=== PATIENT | female | born 1970 | race Caucasian/White ===

== ENCOUNTER 2018-03-14 14:20 | Emergency (ER) | payer OTHER ==
[2018-03-14 14:43] VITALS: BP 134/87; PULSE 126; TEMP 98.5; BMI 26.0
--- NOTE | 2018-03-14 15:14 | PDOC ---
History of Present Illness - General History Source: Patient Exam Limitations: No Limitations - History of Present Illness Initial Comments: 03/14/18 15:25 The patient is a 47 year old female with past medical history of breast cancer ( s/p mastectomy 2004, residual chronic lymphedema) and goiter who presents to the ED s/p injury to her right index finger after closing it in the bathroom door. The patient reports pain to the area, but denies any loss of sensation or tingling. She denies any nausea or vomiting. Denies any recent illness or fevers. She reports being right hand dominant. She states her last tetanus vaccine was "a very long time ago". <Tierra Horner - Last Filed: 03/14/18 15:25> <Juan Pablo Medellin - Last Filed: 03/14/18 17:03> - General Chief Complaint: Laceration Stated Complaint: FINGER LACERATION Time Seen by Provider: 03/14/18 15:14 Past History <Tierra Horner - Last Filed: 03/14/18 15:25> - Past Medical History Cancer: Yes (breast) COPD: No - Suicide/Smoking/Psychosocial Hx Smoking Status: No Smoking History: Never smoked Number of Cigarettes Smoked Daily: 0 Hx Alcohol Use: No Drug/Substance Use Hx: No Substance Use Type: None <Juan Pablo Medellin - Last Filed: 03/14/18 17:03> - Past Medical History Allergies/Adverse Reactions: Allergies Allergy/AdvReac Type Severity Reaction Status Date / Time No Known Allergies Allergy Verified 03/14/18 14:37 Home Medications: Ambulatory Orders Acetaminophen W/ Codeine #3 [Tylenol # 3 -] 1 - 2 tab PO Q4H PRN #20 tablet MDD 8 03/14/18 Anastrozole [Arimidex -] 1 mg PO DAILY 03/14/18 Calcium Carbonate/Vitamin D3 [Calcium 600 + Vit D 400 Softgl] 1 each PO DAILY Cephalexin Monohydrate [Keflex] 250 mg PO Q6H #30 capsule 03/14/18 Review of Systems - Review of Systems Able to Perform ROS?: Yes Comments:: 03/14/18 15:25 CONSTITUTIONAL: Absent: fever, no chills, no fatigue EYES: Absent: visual changes ENT: Absent: ear pain, no sore throat CARDIOVASCULAR: Absent: chest pain, no palpitations RESPIRATORY: Absent: cough, no SOB GI: Absent: abdominal pain, no nausea, no vomiting, no constipation, no diarrhea GENITOURINARY: Absent: dysuria, no frequency, no hematuria MUSKULOSKELETAL: Present: pain to right index finger Absent: back pain SKIN: Absent: rash NEURO: Absent: headache All Other Systems: Reviewed and Negative <EvensTierra - Last Filed: 03/14/18 15:25> *Physical Exam - Vital Signs Last Vital Signs Temp Pulse Resp BP Pulse Ox 98.5 F 126 H 18 134/87 99 03/14/18 14:36 03/14/18 14:36 03/14/18 14:36 03/14/18 14:36 03/14/18 14:36 - Physical Exam Comments: 03/14/18 15:27 GENERAL: Well-appearing, well-nourished. No apparent distress. HEENT: Normocephalic, atraumatic. PERRL, EOM intact. CARDIOVASCULAR: Normal S1, S2. Regular rate and rhythm. PULMONARY: Clear to auscultation bilaterally. ABDOMEN: Soft, non-distended, non-tender. EXTREMITIES: Chronic lymphedema of right arm without erythema or warmth suggestive of infection or inflammation. The right index finger has a 1 cm transverse laceration on volar aspect of distal pulp, not involving nail or nail bed. No involvement of joint. Full flexion or extension of the DIP joint against resistance. No significant sensory defect. Normal ROM in all four extremities. No gross deformities. SKIN: Warm, dry. No rash NEUROLOGICAL: No focal neurological deficits. <[facility] - Last Filed: 03/14/18 15:25> - Vital Signs Last Vital Signs Temp Pulse Resp BP Pulse Ox 98.5 F 126 H 18 134/87 99 03/14/18 14:36 03/14/18 14:36 03/14/18 14:36 03/14/18 14:36 03/14/18 14:36 <Juan Pablo Medellin - Last Filed: 03/14/18 17:03> Medical Decision Making - Medical Decision Making 03/14/18 17:02 Procedure note: Repair of laceration The fingertip was prepped with Betadine and the laceration was thoroughly irrigated with normal saline. Hemostasis with pressure. Tissues of the fingertip were well approximated with Steri-Strips. Bleeding controlled. Tube gauze applied and a sling for elevation. Return for wound check and dressing change as directed. Antibiotics prescribed due to chronic lymphedema from breast surgery. Patient fully ambulatory and in no pain or other distress upon discharge to follow-up as directed <Juan Pablo Medellin - Last Filed: 03/14/18 17:03> *DC/Admit/Observation/Transfer - Attestations Scribe Attestion: 03/14/18 15:30 Documentation prepared by Tierra Horner, acting as medical claims assistant for Juan Pablo Munson MD. <Tierra Horner - Last Filed: 03/14/18 15:25> - Discharge Dispostion Decision to Admit order: No <Juan Pablo Medellin - Last Filed: 03/14/18 17:03> Diagnosis at time of Disposition: Laceration of finger Qualifiers: Encounter type: initial encounter Finger: index finger Damage to nail status: without damage Foreign body presence: without foreign body Laterality: right Qualified Code(s): S61.210A - Laceration without foreign body of right index finger without damage to nail, initial encounter - Discharge Dispostion Disposition: HOME Condition at time of disposition: Improved - Prescriptions Prescriptions: Acetaminophen W/ Codeine #3 [Tylenol # 3 -] 1 - 2 tab PO Q4H PRN #20 tablet MDD 8 PRN Reason: Pain Cephalexin Monohydrate [Keflex] 250 mg PO Q6H #30 capsule - Patient Instructions Printed Discharge Instructions: How to Use a Sling, DI for Laceration Repair Steri-Strips Additional Instructions: Keep the finger clean and absolutely dry. Completely avoid exposure to water. Antibiotics as directed. Pain killers as needed. Keep the forearm and hand elevated at all times Return for dressing change and wound check in 3-4 days.
[2018-03-14] MEDS ORDERED: IBUPROFEN 600 MG TABLET (FP) PO ONE ×2 (15:20→15:24)
[2018-03-14] MEDS ORDERED: BENZOIN/ALOE VERA/STORAX/TOLU 58 ML BOTTLE ONE (15:34)
[2018-03-14] MEDS ORDERED: CEPHALEXIN MONOHYDRATE 500 MG CAPSULE (UD) PO ONE (15:56)
[2018-03-14] MEDS ORDERED: DIPHTH,PERTUSS(ACELL),TET 0.5 ML DISP.SYRIN IM ONE ×2 (16:05→16:06)
[2018-03-14] MEDS ORDERED: CEPHALEXIN MONOHYDRATE 500 MG CAPSULE (UD) ONE (16:07)
== END 2018-03-14 16:13 | disposition home or self-care (01) ==
LOC: FER 14:20
PROC: 3E0234Z Introduction of Serum, Toxoid and Vaccine into Muscle, Percutaneous Approach (ICD-10-PCS; principal; 2018-03-14)
DX: S61.210A Laceration without foreign body of right index finger without damage to nail, initial encounter (principal); W20.8XXA Other cause of strike by thrown, projected or falling object, initial encounter; Y93.89 Activity, other specified; Y92.410 Unspecified street and highway as the place of occurrence of the external cause; Z85.3 Personal history of malignant neoplasm of breast
CPT/HCPCS: 73140-TC-RT-FY; 90715; 99282-25

== ENCOUNTER 2018-03-18 16:11 | Emergency (ER) | payer OTHER ==
[2018-03-18 16:14] VITALS: BP 126/81; PULSE 91; TEMP 99.5; BMI 25.9
--- NOTE | 2018-03-18 17:11 | PDOC ---
History of Present Illness - History of Present Illness Initial Comments: 03/18/18 17:20 47 yo F with h/o breast cancer (s/p mastectomy 2004, residual chronic lymphedema ), day 4 s/p injury/laceration to R index finger after closing it in the bathroom door. Patient pain improved, and continues to deny loss of sensation, numbness, tingling, or weakness. Denies draining, discharge, bleeding. No nailbed involvement, foreign body, or debris. Has been able to keep wound closed with steri strips in place and dry. Patient R hand dominant and tetanus up to date. Denies F/C, N/V, CP, SOB, abdominal pain, diarrhea, constipation, urinary complaints, weakness, lightheadedness, sensory changes. PMHx: as noted above ROS: as noted above <Sean Kearns - Last Filed: 03/18/18 17:20> <Ankit Monte - Last Filed: 03/18/18 18:29> <Devonte Wilkins - Last Filed: 03/18/18 18:32> - General Chief Complaint: Wound Stated Complaint: WOUND CHECK Time Seen by Provider: 03/18/18 16:18 Past History - Past Medical History Cancer: Yes (breast) COPD: No - Suicide/Smoking/Psychosocial Hx Smoking Status: No Smoking History: Never smoked Number of Cigarettes Smoked Daily: 0 Hx Alcohol Use: No Drug/Substance Use Hx: No Substance Use Type: None <Sean Kearns - Last Filed: 03/18/18 17:20> <Ankit Monte - Last Filed: 03/18/18 18:29> <Devonte Wilkins - Last Filed: 03/18/18 18:32> - Past Medical History Allergies/Adverse Reactions: Allergies Allergy/AdvReac Type Severity Reaction Status Date / Time No Known Allergies Allergy Verified 03/18/18 16:12 Home Medications: Ambulatory Orders Acetaminophen W/ Codeine #3 [Tylenol # 3 -] 1 - 2 tab PO Q4H PRN #20 tablet MDD 8 03/14/18 Anastrozole [Arimidex -] 1 mg PO DAILY 03/14/18 Calcium Carbonate/Vitamin D3 [Calcium 600 + Vit D 400 Softgl] 1 each PO DAILY Cephalexin Monohydrate [Keflex] 250 mg PO Q6H #30 capsule 03/14/18 Review of Systems - Review of Systems Comments:: 03/18/18 17:22 GENERAL/CONSTITUTIONAL: No fever or chills. No weakness. HEAD, EYES, EARS, NOSE AND THROAT: No change in vision. No ear pain or discharge. No sore throat. CARDIOVASCULAR: No chest pain or shortness of breath RESPIRATORY: No cough, wheezing, or hemoptysis. GASTROINTESTINAL: No nausea, vomiting, diarrhea or constipation. GENITOURINARY: No dysuria, frequency, or change in urination. MUSCULOSKELETAL: R Index finger laceration. No joint or muscle swelling or pain. No neck or back pain. SKIN: No rash NEUROLOGIC: No headache, vertigo, loss of consciousness, or change in strength/ sensation. ENDOCRINE: No increased thirst. No abnormal weight change HEMATOLOGIC/LYMPHATIC: No anemia, easy bleeding, or history of blood clots. ALLERGIC/IMMUNOLOGIC: No hives or skin allergy. <Sean Kearns - Last Filed: 03/18/18 17:20> *Physical Exam - Vital Signs Last Vital Signs Temp Pulse Resp BP Pulse Ox 99.5 F 91 H 17 126/81 100 03/18/18 16:12 03/18/18 16:12 03/18/18 16:12 03/18/18 16:12 03/18/18 16:12 - Physical Exam Comments: 03/18/18 17:23 GENERAL: Awake, alert, and fully oriented, in no acute distress HEAD: No signs of trauma, normocephalic, atraumatic EYES: PERRLA, EOMI, sclera anicteric, conjunctiva clear ENT: Hearing grossly normal, nares patent, oropharynx clear without exudates. Moist mucosa NECK: Normal ROM, supple, no lymphadenopathy, JVD, or masses LUNGS: No distress, speaks full sentences, clear to auscultation bilaterally HEART: Regular rate and rhythm, normal S1 and S2, no murmurs, rubs or gallops, peripheral pulses normal and equal bilaterally. EXTREMITIES : Normal inspection, Normal range of motion, no edema. No clubbing or cyanosis. R HAND: R index finger with steri strips in place. Laceration 1 cm volar distal pulp with no nailbed involvement. C/D/I. Absent discharge, bleeding, drainage. Nml ROM. Intact Radial pulses BL and symmetric 2+. SKIN: Warm, Dry, normal turgor, no rashes or lesions noted <Sean Kearns - Last Filed: 03/18/18 17:20> - Vital Signs Last Vital Signs Temp Pulse Resp BP Pulse Ox 99.5 F 91 H 17 126/81 100 03/18/18 16:12 03/18/18 16:12 03/18/18 16:12 03/18/18 16:12 03/18/18 16:12 <Ankit Monte S - Last Filed: 03/18/18 18:29> - Vital Signs Last Vital Signs Temp Pulse Resp BP Pulse Ox 99.5 F 91 H 17 126/81 100 03/18/18 16:12 03/18/18 16:12 03/18/18 16:12 03/18/18 16:12 03/18/18 16:12 <Devonte Wilkins - Last Filed: 03/18/18 18:32> Medical Decision Making - Medical Decision Making 03/18/18 17:25 47 yo F with h/o breast cancer (s/p mastectomy 2004, residual chronic lymphedema ), day 4 s/p injury/laceration to R index finger after closing it in the bathroom door, who presents for wound check. VSS, AF, A&OX3. Distal R index finger 1 cm pulp laceration is well perfused, C/D/I, steri strips in place, and neruovasculalry intact. Patient on antibiotic d/t chronic R arm lymphedema. ED Course: Tube gauze placed over steri strips on R index finger. Pt. advised to [facility] ED in 4-5 days for strip removal/wound check. Pt. stable for d/c with return precautions. <Sean Kearns - Last Filed: 03/18/18 17:20> *DC/Admit/Observation/Transfer - Discharge Dispostion Decision to Admit order: No - Attestations Physician Attestion: 03/18/18 17:10 I attest to the information provided in this note. <Sean Kearns - Last Filed: 03/18/18 17:20> <Ankit Monte S - Last Filed: 03/18/18 18:29> - Attestations Scribe Attestion: Documentation prepared by Devonte Wilkins, acting as lpn medical assistant for Ankit Monte MD. <Devonte Wilkins - Last Filed: 03/18/18 18:32> Diagnosis at time of Disposition: Wound check, abscess Laceration of finger Qualifiers: Encounter type: subsequent encounter Finger: index finger Damage to nail status : without damage Foreign body presence: without foreign body Laterality: right Qualified Code(s): S61.210D - Laceration without foreign body of right index finger without damage to nail, subsequent encounter - Discharge Dispostion Disposition: HOME Condition at time of disposition: Stable - Patient Instructions Printed Discharge Instructions: DI for Wound Dehiscence, How to Change a Wet-to -dry Wound Dressing Additional Instructions: Please return to the emergency department with any new or worsening symptoms or concerns. Please follow up in emergency department in 5 days for strip removal. - Post Discharge Activity Forms/Work/School Notes: Back to Work Attending Attestation - ED Attending Attestation I have performed the following: I have examined & evaluated the patient, The case was reviewed & discussed with the resident, I agree w/resident's findings & plan, Exceptions are as noted <Ankit Monte - Last Filed: 03/18/18 18:29> - Resident Resident Name: Sean Kearns - ED Attending Attestation I have performed the following: I have examined & evaluated the patient, The case was reviewed & discussed with the resident, I agree w/resident's findings & plan, Exceptions are as noted - HPI HPI: 03/18/18 18:32 The patient is 47 year old female with a significant past medical history of goiter, breast cancer (mastectomy 2003), and residual chronic lymphedema who presents to the emergency department for evaluation of wound that was treated on Wednesday 03/14. The patient reports visiting the emergency department today to have her recent right index finger wound evaluated. She reports right index finger pain still exists. The patient denies fever, chills, nausea, vomiting, diarrhea, and constipation. - Physicial Exam PE: GENERAL: Well developed, well nourished. Awake and alert. No acute distress. HEENT: Normocephalic, atraumatic. PERRLA, EOMI. No conjunctival pallor. Sclera are non- icteric. Moist mucous membranes. Oropharynx is clear. NECK: Supple. Full ROM. No JVD. Carotid pulses 2+ and symmetric, without bruits. No thyromegaly. No lymphadenopathy. CARDIOVASCULAR: Regular rate and rhythm. No murmurs, rubs, or gallops. Distal pulses are 2+ and symmetric. PULMONARY: No evidence of respiratory distress. Lungs clear to auscultation bilaterally. No wheezing, rales or rhonchi. ABDOMINAL: Soft. Non-tender. Non-distended. No rebound or guarding. No organomegaly. Normoactive bowel sounds. MUSCULOSKELETAL Normal range of motion at all joints. No bony deformities or tenderness. No CVA tenderness. EXTREMITIES: (+)Incomplete healing of distal tip laceration of second digit of right hand. No cyanosis. No clubbing. No edema. No calf tenderness. SKIN: Warm and dry. Normal capillary refill. No rashes. No jaundice. NEUROLOGICAL: Alert, awake, appropriate. Cranial nerves 2-12 intact. No deficits to light touch and temperature in face, upper extremities and lower extremities. No motor deficits in the in face, upper extremities and lower extremities. Normoreflexic in the upper and lower extremities. Normal speech. Toes are down- going bilaterally. PSYCHIATRIC: Cooperative. Good eye contact. Appropriate mood and affect. - Medical Decision Making Strongly encouraged her to keep wound clean and dry. Continue antibiotics and return to ED for follow up evaluation. <Devonte Wilkins - Last Filed: 03/18/18 18:32>
== END 2018-03-18 17:20 | disposition home or self-care (01) ==
LOC: FER 16:11
DX: Z48.01 Encounter for change or removal of surgical wound dressing (principal)
CPT/HCPCS: 99281-25

== ENCOUNTER → 2018-03-22 | Emergency (ER) | payer OTHER ==
[~2018-03-22] MED LIST: VANCOMYCIN 1 GRAM (PRE-DOCKED) 1,000 MG/250 ML BAG IVPB ONE; VANCOMYCIN 1,000 MG VIAL (RESTRICTED TO ID ONLY) ONE
--- NOTE | 2018-03-22 20:14 | PDOC ---
Suture Removal/Wound Check HPI - History of Present Illness History Source: Yes: Patient Exam Limitations: Yes: No Limitations - Onset of Previous Treatment Comment:: 03/22/18 20:27 The patient is a 47 year old female, with a significant past medical history of breast cancer (s/p mastectomy 2003, residual chronic lymphedema), who presents to the emergency department, s/p laceration for a wound check of the right distal phalanx. The patient reports slamming her finger in a door and was treated. She reports coming in 2 days ago for a wound check and told to come back today for further evaluation. She denies any loss of sensation to the finger. She denies recent fevers, chills , headache or dizziness. She denies recent nausea, vomit, diarrhea or constipation. She denies recent dysuria, frequency, urgency or hematuria. She denies recent chest pain or shortness of breath. PAST MEDICAL HISTORY: breast cancer (s/p mastectomy 2003, residual chronic lymphedema) PAST SURGICAL HISTORY: no significant history FAMILY HISTORY: no pertinent history SOCIAL HISTORY: Pt lives with family and is employed. MEDICATIONS: reviewed ALLERGIES: As per nursing notes General: No fevers or chills, no weakness, no weight loss HEENT: No change in vision. No sore throat,. No ear pain CardioVascular: No chest pain or shortness of breath Respiratory:No cough, or wheezing. Gastrointestinal: no nausea, vomiting, diarrhea or constipation, No rectal bleeding Genitourinary: No dysuria, hematuria, or frequency Musculoskeletal: No joint or muscle pain or swelling Neurologic: No headache, vertigo, dizziness or loss of consciousness Psychiatric: nor depression Skin: No rashes or easy bruising Endocrine: no increased thirst or abnormal weight change Allergic: no skin or latex allergy All other systems reviewed and normal GENERAL: The patient is awake, alert, and fully oriented, in no acute distress. HEAD: Normal with no signs of trauma. EYES: Pupils equal, round and reactive to light, extraocular movements intact, sclera anicteric, conjunctiva clear. +EXTREMITIES: Dehiscence of the wound margin with purulent discharge of the distal phalanx of the right index finger with moderate erythema and tenderness. No tenderness to palpation of the extensor and flexor sheath. Normal range of motion, no edema. NEUROLOGICAL: Normal speech, normal gait. PSYCH: Normal mood, normal affect. SKIN: Warm, Dry, normal turgor, no rashes or lesions noted. <Los Shankar - Last Filed: 03/22/18 21:18> - History of Present Illness History Source: Yes: Patient Exam Limitations: Yes: No Limitations - Previous ED Treatment Type of procedure performed on last visit: Yes: Other (wound check) - Onset of Previous Treatment Comment:: A portion of this note was documented by scribe services under my direction. I have reviewed the details of the note, within reason, and agree with the documentation. The case summary and management plan written by me. Assessment and plan: This is a 47-year-old female who comes in for a wound check. Patient was here on the of this month for the initial injury which was a partial amputation of the tip of the distal phalanx of her right index finger. An x-ray was done at the time of the initial injury that shows a questionable very small chip fracture of the tip versus calcification in the area. The finger was not initially sutured in said it was Steri-Stripped and an occlusive tegaderm type dressing was applied. Patient was told to return in 4 days for a wound check. Patient was also started on Keflex for 7 days which she completed as prescribed Patient did return in 4 days for a wound check. And patient was told to return again in another 4 days for another wound check. When patient returned today I removed the occlusive dressing and the Steri-Strips came off with it. There was purulent discharge from the wound margins with total wound dehiscence. There was erythema and swelling of the finger secondary to infection. Discussed with Dr. Dominguez who was covering the hand service. He recommended patient be transferred to the [facility] as this is a complicated infected wound of her finger that most likely will require debridement and OR management. [facility] was called and Dr. Overton accepted patient for transfer to his service patient will go to the emergency department at the [facility] <Pratima Martínez I - Last Filed: 03/23/18 19:53> - History of Present Illness Chief Complaint: Revisit,Wound Recheck Stated Complaint: WOUND CHECK Time Seen by Provider: 03/22/18 20:14 Past History <Los Shankar - Last Filed: 03/22/18 21:18> - Past Medical History Cancer: Yes (breast) COPD: No - Suicide/Smoking/Psychosocial Hx Smoking Status: No Smoking History: Never smoked Number of Cigarettes Smoked Daily: 0 Hx Alcohol Use: No Drug/Substance Use Hx: No Substance Use Type: None <Pratima Martínez I - Last Filed: 03/23/18 19:53> - Past Medical History Allergies/Adverse Reactions: Allergies Allergy/AdvReac Type Severity Reaction Status Date / Time No Known Allergies Allergy Verified 03/18/18 16:12 Home Medications: Ambulatory Orders Anastrozole [Arimidex -] 1 mg PO DAILY 03/14/18 *Physical Exam - Vital Signs Last Vital Signs Temp Pulse Resp BP Pulse Ox 98.9 F 92 H 16 120/74 100 03/22/18 20:16 03/22/18 20:16 03/22/18 20:16 03/22/18 20:16 03/22/18 20:16 <Los Shankar - Last Filed: 03/22/18 21:18> *DC/Admit/Observation/Transfer - Attestations Scribe Attestion: 03/22/18 20:27 Documentation prepared by Los Shankar, acting as medical practitioners for Pratima Martínez MD. <Los Shankar - Last Filed: 03/22/18 21:18> <Pratima Martínez I - Last Filed: 03/23/18 19:53> Diagnosis at time of Disposition: Infection of index finger, Wound dehiscence - Discharge Dispostion Disposition: TRANSFER ACUTE CARE/OTHER HOSP Condition at time of disposition: Stable
[2018-03-22 20:20] VITALS: TEMP 98.9; BMI 25.9
[2018-03-22 21:57] LABS: HEMATOCRIT 39.4 % (32.4-45.2); HEMOGLOBIN 13.7 GM/dl (10.7-15.3); MCH 29.1 pg (25.7-33.7); MCHC 34.8 g/dl (32.0-36.0); MEAN CELL VOLUME 83.7 fl (80-96); MEAN PLT VOLUME 7.3 fl (7.5-11.1); PLATELET COUNT 344 K/MM3 (134-434); RBC 4.71 M/mm3 (3.60-5.2); RDW 12.4 % (11.6-15.6); WHITE BLOOD COUNT 7.5 K/mm3 (4.0-10.8)
[2018-03-22 21:58] LABS: BASO % 0.8 % (0-2.0); EOS % 3.3 % (0-4.5); LYMPH % 31.1 % (8-40); MONO % 5.4 % (3.8-10.2); NEUT % 59.4 % (42.8-82.8)
[2018-03-22 22:08] LABS: ALBUMIN 4.6 g/dl (3.5-5.0); ALK PHOS 59 U/L (32-92); ANION GAP 12 (8-16); BLOOD UREA NITROGEN 19 mg/dl (7-18); CALCIUM 9.6 mg/dl (8.4-10.2); CHLORIDE 104 mmol/L (98-107); CO2 23 mmol/L (22-28); CREATININE 0.8 mg/dl (0.6-1.3); GLUCOSE,RANDOM 100 mg/dl (74-106); POTASSIUM 3.9 mmol/L (3.5-5.1); SGOT/AST 23 U/L (10-42); SGPT/ALT 23 U/L (10-40); SODIUM 139 mmol/L (136-145); TOT PROT 7.8 g/dl (6.4-8.3)
[2018-03-22 22:15] LABS: BILIRUBIN,TOTAL < 0.5 mg/dl (0.2-1.0)
[2018-03-22 22:21] VITALS: BP 128/76; PULSE 96
== END | disposition short-term general hospital (02) ==
LOC: FER 20:06
DX: Z48.01 Encounter for change or removal of surgical wound dressing (principal)
CPT/HCPCS: 36415; 80053; 85025; 99281-25

== ENCOUNTER 2019-08-15 15:40 | Inpatient (IN) | payer OTHER ==
[2019-08-15 15:58] VITALS: BMI 31.3
--- NOTE | 2019-08-15 15:59 | PDOC ---
Rapid Medical Evaluation Chief Complaint: Respiratory Time Seen by Provider: 08/15/19 15:54 Medical Evaluation: Allergies Allergy/AdvReac Type Severity Reaction Status Date / Time No Known Allergies Allergy Verified 03/18/18 16:12 08/15/19 15:54 I have performed a brief in-person evaluation of this patient. The patient presents with a chief complaint of: cough, nasal congestion x 6 days. pt was started on zpak which she took for 4 days and was swtched to Levaquin 2 days ago for 7 days. report had fever which has improved but still coughing with intermittent SOB. pt using ventolin inhaler given by PCP Pertinent physical exam findings: mild inspiratory wheeze in NAD. RRR I have ordered the following: chest x-rays The patient will proceed to the ED for further evaluation 08/15/19 15:59 Discharge Disposition - Diagnosis Cough URI (upper respiratory infection) Qualifiers: URI type: unspecified URI Qualified Code(s): J06.9 - Acute upper respiratory infection, unspecified - Discharge Dispostion Condition at time of disposition: Stable - Referrals - Patient Instructions - Post Discharge Activity
[2019-08-15] MEDS ORDERED: ALBUTEROL SO4 2.5/IPRATROPIUM 0.5 INH SOL 3 ML VIAL.NEB. NEB ONE ×3 (16:00→17:19)
[2019-08-15] MEDS ORDERED: MAGNESIUM SULF 50% (8.12 MEQ/2 ML-1 GM VIAL) IVPB ONE (17:17)
[2019-08-15] MEDS ORDERED: DEXAMETHASONE SOD PHOSPHATE 10 MG/1 ML VIAL IVPUSH ONE (17:17)
[2019-08-15] MEDS ORDERED: DEXAMETHASONE SOD PHOSPHATE 10 MG/1 ML VIAL ONE ×2 (17:19→19:23)
[2019-08-15] MEDS: ALBUTEROL SO4 2.5/IPRATROPIUM 0.5 INH SOL 3 ML VIAL.NEB. NEB SCH ×4 (17:21→18:19)
[2019-08-15] MEDS ORDERED: MAGNESIUM 1GM/D5W - 1 GM/100 ML IVPB IVPB ONE ×2 (17:24→17:45)
--- NOTE | 2019-08-15 17:25 | PDOC ---
History of Present Illness - General Chief Complaint: Respiratory Stated Complaint: cough Time Seen by Provider: 08/15/19 15:54 - History of Present Illness Initial Comments: 08/15/19 17:24 49-year-old female with history of breast cancer on oral chemotherapy presents for evaluation of cough and headache x5 days she is completed a course of Zithromax without relief her doctor then put her on 250 mg of Levaquin for 7 days she presents for further evaluation today. Past History - Past Medical History Allergies/Adverse Reactions: Allergies Allergy/AdvReac Type Severity Reaction Status Date / Time No Known Allergies Allergy Verified 03/18/18 16:12 Home Medications: Ambulatory Orders Anastrozole [Arimidex -] 1 mg PO DAILY 03/14/18 Cancer: Yes (breast) COPD: No - Immunization History Immunization Up to Date: Yes - Psycho Social/Smoking Cessation Hx Smoking Status: No Smoking History: Never smoked Have you smoked in the past 12 months: No Number of Cigarettes Smoked Daily: 0 Information on smoking cessation initiated: No Hx Alcohol Use: No Drug/Substance Use Hx: No Substance Use Type: None Review of Systems - Review of Systems Constitutional: No: Fever Respiratory: Yes: Cough Neurological: Yes: Headache *Physical Exam - Vital Signs Last Vital Signs Temp Pulse Resp BP Pulse Ox 97.8 F 104 H 16 126/77 98 08/15/19 15:56 08/15/19 15:56 08/15/19 15:56 08/15/19 15:56 08/15/19 15:56 - Physical Exam Comments: 08/15/19 17:25 GENERAL: The patient is awake, alert, and fully oriented, in no acute distress. HEAD: Normal with no signs of trauma. EYES: sclera anicteric, conjunctiva clear. ENT: Ears normal NECK: Normal range of motion LUNGS: Diffuse wheezing on the right side left side is clear. HEART: S1 and S2 without murmur, rub or gallop. ABDOMEN: Soft, nontender, normoactive bowel sounds. No guarding, no rebound. No masses. EXTREMITIES: Normal range of motion, no edema. No clubbing or cyanosis. No cords, erythema, or tenderness. NEUROLOGICAL: Cranial nerves II through XII grossly intact. Normal speech, normal gait. PSYCH: Normal mood, normal affect. SKIN: Warm, Dry, normal turgor, no rashes or lesions noted. ED Treatment Course - Medications Given in the ED: ED Medications Discontinued Medications Generic Name Dose Route Start Last Admin Trade Name Freq PRN Reason Stop Dose Admin Albuterol/Ipratropium 1 amp 08/15/19 16:00 08/15/19 16:30 Duoneb - NEB 08/15/19 16:01 1 amp ONCE ONE Administration Medical Decision Making - Medical Decision Making 08/15/19 18:32 Continued wheezing after 5 duo nebs, magnesium, and Decadron. Discussed with emergency room attending patient will be transferred to the main emergency room for admission Discharge - Discharge Information Problems reviewed: Yes Clinical Impression/Diagnosis: Cough URI (upper respiratory infection) Qualifiers: URI type: unspecified URI Qualified Code(s): J06.9 - Acute upper respiratory infection, unspecified Condition: Stable - Follow up/Referral Referrals: Indra Kasper MD [Primary Care Provider] - - Patient Discharge Instructions - Post Discharge Activity
[2019-08-15] MEDS ORDERED: ALBUTEROL SO4 2.5/IPRATROPIUM 0.5 INH SOL 3 ML VIAL.NEB. NEB STA (18:48)
[2019-08-15] MEDS ORDERED: DEXAMETHASONE SOD PHOSPHATE 20 MG/5 ML VIAL IVPB STA (18:49)
[2019-08-15] MEDS ORDERED: ALBUTEROL SO4 0.083% IH SOL 2.5 MG/3 ML VIAL.NEB. NEB ONE ×3 (18:50→19:23)
[2019-08-15 19:27] LABS: BASO % 0.3 % (0-2.0); HEMATOCRIT 35.6 % (32.4-45.2); LYMPH % 16.3 % (8-40); MCH 28.2 pg (25.7-33.7); MCHC 33.6 g/dl (32.0-36.0); MEAN CELL VOLUME 83.8 fl (80-96); MEAN PLT VOLUME 7.2 fl (7.5-11.1); MONO % 2.8 % (3.8-10.2); NEUT % 79.6 % (42.8-82.8); PLATELET COUNT 235 K/MM3 (134-434); RBC 4.25 M/mm3 (3.60-5.2); RDW 13.1 % (11.6-15.6)
[2019-08-15 19:39] LABS: INR 1.15 (0.83-1.09); PROTHROMBIN TIME (PATIENT) 13.6 SEC (9.7-13.0)
[2019-08-15 19:57] LABS: ALBUMIN 3.9 g/dl (3.4-5.0); ALK PHOS 111 U/L (45-117); ANION GAP 10 MMOL/L (8-16); BILIRUBIN,TOTAL 0.2 mg/dL (0.2-1); BLOOD UREA NITROGEN 20.3 mg/dL (7-18); CALCIUM 9.2 mg/dL (8.5-10.1); CHLORIDE 105 mmol/L (98-107); CO2 26 mmol/L (21-32); CREATININE 1.2 mg/dL (0.55-1.3); GLUCOSE,RANDOM 144 mg/dL (74-106); POTASSIUM 3.1 mmol/L (3.5-5.1); SGOT/AST 20 U/L (15-37); SGPT/ALT 40 U/L (13-61); SODIUM 140 mmol/L (136-145); TOT PROT 7.4 g/dl (6.4-8.2)
[2019-08-15] MEDS ORDERED: POTASSIUM CHLORIDE TABS 20 MEQ TABLET.ER (FP) PO ONE ×2 (20:29→20:35)
[2019-08-15] MEDS ORDERED: SODIUM CHLORIDE 1,000 ML IV STA (20:30)
--- NOTE | 2019-08-15 20:42 | PDOC ---
Documentation entered by Margarita Dewitt SCRIBE, acting as scribe for Soheila Thomas MD. Soheila Thomas MD: This documentation has been prepared by the Esdras zapata Brenda, SCRIBE, under my direction and personally reviewed by me in its entirety. I confirm that the documentation accurately reflects all work, treatment, procedures, and medical decision making performed by me. History of Present Illness - General Chief Complaint: Respiratory Stated Complaint: cough Time Seen by Provider: 08/15/19 15:54 History Source: Patient Exam Limitations: No Limitations - History of Present Illness Initial Comments: 08/15/19 18:51 The patient is a 49 year old female, with a significant PMH of breast cancer ( on oral therapy) who presents to the emergency department with5-6 days of coughing, and a subjective fever accompanied by shortness of breath. PAtient reports going to her PCP who put her on zithromax, and was switched to Levaquin 2 days ago to no avail. Patient has also gotten 5 nebulizer treatments, to no avail. s/p right mastectomy The patient denies history of asthma. Denies chest pain, headache and dizziness. Denies chills, nausea, vomiting, diarrhea and constipation.Denies dysuria, frequency, urgency and hematuria. Allergies: NKA Past surgical history: Right mastectomy Social history: Denies tobacco use, alcohol use or illicit drug use. PCP: Majo Past History - Past Medical History Allergies/Adverse Reactions: Allergies Allergy/AdvReac Type Severity Reaction Status Date / Time No Known Allergies Allergy Verified 03/18/18 16:12 Home Medications: Ambulatory Orders Anastrozole [Arimidex -] 1 mg PO DAILY 03/14/18 Cancer: Yes (breast) COPD: No - Immunization History Immunization Up to Date: Yes - Psycho Social/Smoking Cessation Hx Smoking Status: No Smoking History: Never smoked Have you smoked in the past 12 months: No Number of Cigarettes Smoked Daily: 0 Information on smoking cessation initiated: No Hx Alcohol Use: No Drug/Substance Use Hx: No Substance Use Type: None Review of Systems - Review of Systems Able to Perform ROS?: Yes Comments:: 08/15/19 18:51 CONSTITUTIONAL: Absent: (+) Subjective fever. No chills, no fatigue EYES: Absent: visual changes ENT: Absent: ear pain, no sore throat CARDIOVASCULAR: Absent: chest pain, no palpitations RESPIRATORY: (+) Cough (+) SOB Absent: GI: Absent: abdominal pain, no nausea, no vomiting, no constipation, no diarrhea GENITOURINARY: Absent: dysuria, no frequency, no hematuria MUSKULOSKELETAL: Absent: back pain, no arthralgia, no myalgia SKIN: Absent: rash NEURO: Absent: *Physical Exam - Vital Signs Last Vital Signs Temp Pulse Resp BP Pulse Ox 98.7 F 128 H 16 142/70 97 08/15/19 18:45 08/15/19 18:45 08/15/19 15:56 08/15/19 18:45 08/15/19 18:45 - Physical Exam Comments: 08/15/19 18:49 GENERAL: (+) Petite Well-appearing, well-nourished. No apparent distress. HEENT: Normocephalic, atraumatic. PERRL, EOM intact. CARDIOVASCULAR: (+) Tachycardic Normal S1, S2. Regular rhythm. PULMONARY: (+) Diffuse expiratory wheezing ABDOMEN: (+) Right mastectomy. Soft, non-distended, non-tender. EXTREMITIES: Normal ROM in all four extremities. No gross deformities. SKIN: Warm, dry. No rash NEUROLOGICAL: No focal neurological deficits. ED Treatment Course - LABORATORY CBC & Chemistry Diagram: 08/15/19 19:17 08/15/19 19:17 - ADDITIONAL ORDERS Additional order review: Laboratory Results 08/15/19 19:17 PT with INR 13.60 H INR 1.15 H 08/15/19 19:17 RBC 4.25 MCV 83.8 MCHC 33.6 RDW 13.1 MPV 7.2 L Neutrophils % 79.6 D Lymphocytes % 16.3 D Monocytes % 2.8 L Eosinophils % 1.0 Basophils % 0.3 - Medications Given in the ED: ED Medications Discontinued Medications Generic Name Dose Route Start Last Admin Trade Name Freq PRN Reason Stop Dose Admin Albuterol/Ipratropium 1 amp 08/15/19 16:00 08/15/19 16:30 Duoneb - NEB 08/15/19 16:01 1 amp ONCE ONE Administration Albuterol/Ipratropium 1 amp 08/15/19 17:30 08/15/19 18:19 Duoneb - NEB 08/15/19 18:16 1 amp Q15M [facility]IL[facility]ERT Administration Dexamethasone Sodium Phosphate 10 mg 08/15/19 17:17 08/15/19 17:38 Decadron Injection - IVPUSH 08/15/19 17:18 10 mg ONCE ONE Administration Magnesium Sulfate 2 gm 08/15/19 17:17 08/15/19 17:38 Magnesium Sulfate IVPB 08/15/19 17:18 2 gm ONCE ONE Administration Medical Decision Making - Medical Decision Making 08/15/19 19:41 This 49-year-old female was initially seen in fast track but failed to improve with persistent coarse expiratory wheezing after 5 treatments of bronchodilators and IV Decadron No past medical history of asthma HPI she was started on Zithromax and took it for 4 days and then 2 days ago her PCP started her on Levaquin and she has had 2 days of Levaquin. We will get CTA of the chest Expect to admit this patient 08/15/19 20:43 pt has persistent wheezing and will be admitted for treatment and further workup case discussed with IM resident and admired to Dr Cornell Discharge - Discharge Information Problems reviewed: Yes Clinical Impression/Diagnosis: Cough, Diffuse wheezing URI (upper respiratory infection) Qualifiers: URI type: unspecified URI Qualified Code(s): J06.9 - Acute upper respiratory infection, unspecified Condition: Stable - Admission Yes - Follow up/Referral Referrals: Indra Kasper MD [Primary Care Provider] - - Patient Discharge Instructions - Post Discharge Activity
[2019-08-15] MEDS ORDERED: ACETAMINOPHEN 325 MG TABLET (FP) PO PRN (21:28)
--- NOTE | 2019-08-15 21:28 | HP ---
CHIEF COMPLAINT: cough/SOB PCP: Tatyana Kasper HISTORY OF PRESENT ILLNESS: This is a 49yF with PMH breast cancer 2003 who presented to the ED with cough/ SOB x 6 days. Pt reports fever 102 a few days ago but has been afebrile x 2 days. She was prescribed zpak initially by her PCP and took it for 3 days without improvement. Her antibiotic was then changed to levaquin and she had a total of 3 days of levaquin. Her symptoms did not improve and she presented to the ED for further management. ER course was notable for: (1) CXR unremarkable (2) received decadron 10mg IV x 2, magnesium 2g IV, duoneb x 4, albuterol neb x 1 Recent Travel: pt denies PAST MEDICAL HISTORY: Breast cancer PAST SURGICAL HISTORY: R mastectomy, prophylactic B/L oopherectomy, x 1 Social History: Smoking: pt denies, reports secondhand smoke as a child was an active smoker and her as well Alcohol: pt denies Drugs: pt denies Allergies No Known Allergies Allergy (Verified 03/18/18 16:12) HOME MEDICATIONS: 3 Medication Instructions Recorded Anastrozole [Arimidex -] 1 mg PO DAILY 03/14/18 REVIEW OF SYSTEMS CONSTITUTIONAL: Absent: fever, chills, diaphoresis, generalized weakness, malaise, loss of appetite, weight change HEENT: Absent: rhinorrhea, nasal congestion, throat pain, throat swelling, difficulty swallowing, mouth swelling, ear pain, eye pain, visual changes CARDIOVASCULAR: Absent: chest pain, syncope, palpitations, irregular heart rate, lightheadedness , peripheral edema RESPIRATORY: Present: cough, shortness of breath, wheezing Absent: dyspnea with exertion, orthopnea, stridor, hemoptysis GASTROINTESTINAL: Absent: abdominal pain, abdominal distension, nausea, vomiting, diarrhea, constipation, melena, hematochezia GENITOURINARY: Absent: dysuria, frequency, urgency, hesitancy, hematuria, flank pain, genital pain MUSCULOSKELETAL: Absent: myalgia, arthralgia, joint swelling, back pain, neck pain SKIN: Absent: rash, itching, pallor HEMATOLOGIC/IMMUNOLOGIC: Absent: easy bleeding, easy bruising, lymphadenopathy, frequent infections ENDOCRINE: Absent: unexplained weight gain, unexplained weight loss, heat intolerance, cold intolerance NEUROLOGIC: Absent: headache, focal weakness or paresthesias, dizziness, unsteady gait, seizure, mental status changes, bladder or bowel incontinence PSYCHIATRIC: Absent: anxiety, depression, suicidal or homicidal ideation, hallucinations. PHYSICAL EXAMINATION Vital Signs - 24 hr 3 08/15/19 08/15/19 08/15/19 15:56 18:45 21:25 Temperature 97.8 F 98.7 F Pulse Rate 104 H Pulse Rate [ 128 H Apical] Respiratory 16 Rate Blood Pressure 126/77 Blood Pressure 142/70 [Left Arm] O2 Sat by Pulse 98 97 99 Oximetry (%) GENERAL: Awake, alert, and fully oriented, in no acute distress. HEAD: Normal with no signs of trauma. EYES: Pupils equal, round and reactive to light, extraocular movements intact, sclera anicteric, conjunctiva clear. No lid lag. EARS, NOSE, THROAT: Ears normal, nares patent, oropharynx clear without exudates. Moist mucous membranes. NECK: Normal range of motion, supple without lymphadenopathy, JVD, or masses. LUNGS: Breath sounds equal, mild wheezes bilaterally, No crackles. No accessory muscle use. HEART: Regular rhythm, tachycardia noted, normal S1 and S2 without murmur, rub or gallop. ABDOMEN: Soft, nontender, not distended, normoactive bowel sounds, no guarding, no rebound, no masses. No hepatomegaly or splenomegaly. MUSCULOSKELETAL: Normal range of motion at all joints. No bony deformities or tenderness. No CVA tenderness. UPPER EXTREMITIES: 2+ pulses, warm, well-perfused. No cyanosis. No clubbing. No peripheral edema. LOWER EXTREMITIES: 2+ pulses, warm, well-perfused. No calf tenderness. No peripheral edema. NEUROLOGICAL: Cranial nerves II-XII intact. Normal speech. Normal gait. PSYCHIATRIC: Cooperative. Good eye contact. Appropriate mood and affect. SKIN: Warm, dry, normal turgor, no rashes or lesions noted, normal capillary refill. Laboratory Results - last 24 hr 3 08/15/19 08/15/19 08/15/19 17:22 19:17 19:17 WBC 7.0 RBC 4.25 Hgb 12.0 Hct 35.6 MCV 83.8 MCH 28.2 MCHC 33.6 RDW 13.1 Plt Count 235 MPV 7.2 L Absolute Neuts (auto) 5.6 Neutrophils % 79.6 D Lymphocytes % 16.3 D Monocytes % 2.8 L Eosinophils % 1.0 Basophils % 0.3 Nucleated RBC % 0 PT with INR 13.60 H INR 1.15 H Sodium 140 Potassium 3.1 L Chloride 105 Carbon Dioxide 26 Anion Gap 10 BUN 20.3 H Creatinine 1.2 Est GFR (CKD-EPI)AfAm 60.60 Est GFR (CKD-EPI)NonAf 52.28 Random Glucose 144 H Calcium 9.2 Total Bilirubin 0.2 AST 20 ALT 40 Alkaline Phosphatase 111 Creatine Kinase 64 Troponin I < 0.02 Total Protein 7.4 Albumin 3.9 Influenza A (Rapid) Negative Influenza B (Rapid) Negative ASSESSMENT/PLAN: 49yF with PMH breast cancer now admitted with acute bronchitis/reactive airway. Acute bronchitis with reactive airway - CT chest - hold on antibiotics for now, patient afebrile x 2 days, no leukocytosis and completed 3 days of azithromycin and 3 days of levofloxacin - duonebs qid - albuterol prn - solumedrol 40mg Q6h Breast cancer - cont home arimidex DVT PPX - low risk, pt ambulatory, hold on heparin presently FEN - tolerating PO fluids - bmp in am - regular diet as tolerated Dispo: pt currently requires inpatient management of her emergent condition. Family Medical History Family Hx Cancer: Mother (Breast cancer, in her 30s) Family Hx Cardiac Disorders: Father Family Hx Diabetes: Father Other Family History: father, COPD, in his 70s. 3 brothers, alive and well, no medical issues. 2 children, alive and well, no medical issues Visit type - Emergency Visit Emergency Visit: Yes ED Registration Date: 08/15/19 Care time: The patient presented to the Emergency Department on the above date and was hospitalized for further evaluation of their emergent condition. - New Patient This patient is new to me today: Yes Date on this admission: 08/15/19 - Critical Care Critical Care patient: No
[2019-08-15] MEDS ORDERED: ALBUTEROL SO4 0.083% IH SOL 2.5 MG/3 ML VIAL.NEB. NEB PRN (22:37)
[2019-08-15] MEDS ORDERED: methylPREDNISolone NA SUCC 40 MG/1 ML VIAL ONE (22:48)
[2019-08-15] MEDS: CALCIUM 500MG/VIT-D 200 UNITS COMBO TABLET (FP) PO SCH (23:27)
[2019-08-16] MEDS: methylPREDNISolone NA SUCC 40 MG/1 ML VIAL IVPUSH SCH ×4 (03:15→22:39)
[2019-08-16 08:54] LABS: BASO % 0.1 % (0-2.0); HEMATOCRIT 34.5 % (32.4-45.2); HEMOGLOBIN 11.7 GM/dL (10.7-15.3); LYMPH % 16.2 % (8-40); MCH 28.2 pg (25.7-33.7); MCHC 33.8 g/dl (32.0-36.0); MEAN CELL VOLUME 83.4 fl (80-96); MEAN PLT VOLUME 7.6 fl (7.5-11.1); MONO % 2.5 % (3.8-10.2); NEUT % 81.2 % (42.8-82.8); PLATELET COUNT 279 K/MM3 (134-434); RBC 4.14 M/mm3 (3.60-5.2); RDW 12.9 % (11.6-15.6); WHITE BLOOD COUNT 5.5 K/mm3 (4.0-10.0)
[2019-08-16 09:02] LABS: INR 1.03 (0.83-1.09); PROTHROMBIN TIME (PATIENT) 12.1 SEC (9.7-13.0)
[2019-08-16 09:18] LABS: CALCIUM 9.6 mg/dL (8.5-10.1); MAGNESIUM 2.3 mg/dL (1.8-2.4); PHOSPHOROUS 3.6 mg/dL (2.5-4.9); POTASSIUM 4.2 mmol/L (3.5-5.1)
[2019-08-16] MEDS: IPRATROPIUM BR 0.02% 0.5 MG/2.5 ML VIAL.NEB. NEB SCH ×4 (09:20→20:29)
[2019-08-16] MEDS: ALBUTEROL SO4 0.083% IH SOL 2.5 MG/3 ML VIAL.NEB. NEB SCH ×4 (09:21→20:29)
[2019-08-16] MEDS ORDERED: PT OWN MED DRAWER 7, Y5N ONE (09:23)
[2019-08-16] MEDS: CALCIUM 500MG/VIT-D 200 UNITS COMBO TABLET (FP) PO SCH ×2 (09:38→22:39)
[2019-08-16] MEDS: ANASTROZOLE 1 MG TABLET PO SCH (11:33)
--- NOTE | 2019-08-16 12:09 | EKG ---
Test Reason : Blood Pressure : / mmHG Vent. Rate : 136 BPM Atrial Rate : 136 BPM P-R Int : 118 ms QRS Dur : 082 ms QT Int : 314 ms P-R-T Axes : 057 021 033 degrees QTc Int : 472 ms SINUS TACHYCARDIA POSSIBLE LEFT ATRIAL ENLARGEMENT NONSPECIFIC ST ABNORMALITY ABNORMAL ECG NO PREVIOUS ECGS AVAILABLE Confirmed by Yossi Arevalo MD ([id number]) on 08/16/2019 12:08:53 PM Referred By: Confirmed By:Yossi Arevalo MD
--- NOTE | 2019-08-16 15:05 | PN ---
Progress Note, Physician Chief Complaint: SOB Acute Bronchitis History of Present Illness: Previous notes and events reviewed awake and alert NAD complain of productive cough with green/white phlegm sts her SOB is improving - Current Medication List Current Medications: Active Medications Acetaminophen (Tylenol -) 650 mg PO Q6H PRN PRN Reason: FEVER OR PAIN 1-4 Albuterol Sulfate (Ventolin 0.083% Nebulizer Soln -) 1 amp NEB RQID WILBERT Last Admin: 08/16/19 12:04 Dose: 1 amp Albuterol Sulfate (Ventolin 0.083% Nebulizer Soln -) 1 amp NEB Q4H PRN PRN Reason: SHORT OF BREATH/WHEEZING Anastrozole (Arimidex -) 1 mg PO DAILY [facility] Last Admin: 08/16/19 11:33 Dose: 1 mg Calcium Carbonate/Cholecalciferol (Os-Ang 500+D -) 1 tab PO BID [facility] Last Admin: 08/16/19 09:38 Dose: 1 tab Ipratropium [place] (Atrovent 0.02% Nebulizer -) 1 amp NEB RQID [facility] Last Admin: 08/16/19 12:03 Dose: 1 amp Methylprednisolone Sodium Succinate (Solu-Medrol -) 40 mg IVPUSH Q6H-IV [facility]IL[facility]ERT Last Admin: 08/16/19 09:38 Dose: 40 mg - Objective Vital Signs: Vital Signs Temperature 98.2 F 08/16/19 12:00 Pulse Rate 117 H 08/16/19 12:00 Respiratory Rate 18 08/16/19 12:00 Blood Pressure 135/81 08/16/19 12:00 O2 Sat by Pulse Oximetry (%) 96 08/16/19 04:22 Constitutional: Yes: No Distress, Calm Eyes: Yes: Conjunctiva Clear HENT: Yes: Atraumatic Cardiovascular: Yes: Tachycardia Respiratory: Yes: Regular, Wheezes Gastrointestinal: Yes: Normal Bowel Sounds, Soft Musculoskeletal: Yes: WNL Extremities: Yes: WNL Edema: No Neurological: Yes: Alert, Oriented Psychiatric: Yes: Alert, Oriented Labs: CBC, BMP 08/16/19 07:44 08/16/19 07:44 INR, PTT INR 1.03 (0.83-1.09) 08/16/19 07:44 Problem List - Problems (1) Acute bronchitis Assessment/Plan: -Pulm consult -Bronchodilators -afebrile -no leukocytosis -previous antibiotics use as outpatient -Chest CT scam shows chronic lung disease with no acute pathology within the chest -IV Medrol -keep SpO2 >90% -O2 via [place] Code(s): J20.9 - ACUTE BRONCHITIS, UNSPECIFIED (2) Breast cancer Assessment/Plan: -Arimidex Code(s): C50.919 - MALIGNANT NEOPLASM OF UNSP SITE OF UNSPECIFIED FEMALE BREAST Assessment/Plan see problem list dvt ppx
[2019-08-16] MEDS ORDERED: PANTOPRAZOLE 40 MG TABLET (FP) PO ONE (17:18)
[2019-08-17] MEDS: IPRATROPIUM BR 0.02% 0.5 MG/2.5 ML VIAL.NEB. NEB SCH ×4 (01:00→20:22)
[2019-08-17] MEDS: methylPREDNISolone NA SUCC 40 MG/1 ML VIAL IVPUSH SCH ×4 (03:34→21:27)
[2019-08-17 07:54] LABS: HEMATOCRIT 32.9 % (32.4-45.2); HEMOGLOBIN 11.2 GM/dL (10.7-15.3); MCH 28.6 pg (25.7-33.7); MEAN CELL VOLUME 83.9 fl (80-96); MEAN PLT VOLUME 7.3 fl (7.5-11.1); PLATELET COUNT 311 K/MM3 (134-434); RBC 3.93 M/mm3 (3.60-5.2); RDW 13.3 % (11.6-15.6); WHITE BLOOD COUNT 11.6 K/mm3 (4.0-10.0)
[2019-08-17 08:17] LABS: ALBUMIN 3.6 g/dl (3.4-5.0); BILIRUBIN,TOTAL 0.2 mg/dL (0.2-1); BLOOD UREA NITROGEN 22.3 mg/dL (7-18); CALCIUM 9.6 mg/dL (8.5-10.1); POTASSIUM 4.5 mmol/L (3.5-5.1); TOT PROT 7.1 g/dl (6.4-8.2)
[2019-08-17] MEDS: ALBUTEROL SO4 0.083% IH SOL 2.5 MG/3 ML VIAL.NEB. NEB SCH ×4 (08:39→20:21)
[2019-08-17] MEDS ORDERED: PT OWN MED DRAWER 7, Y5N ONE (10:39)
[2019-08-17] MEDS: ANASTROZOLE 1 MG TABLET PO SCH (10:40)
[2019-08-17] MEDS: CALCIUM 500MG/VIT-D 200 UNITS COMBO TABLET (FP) PO SCH ×2 (10:40→21:27)
--- NOTE | 2019-08-17 11:09 | PN ---
Progress Note, Physician Chief Complaint: SOB Acute Bronchitis History of Present Illness: Previous notes and events reviewed awake and alert NAD complain of productive cough with white phlegm sts her breathing is better - Current Medication List Current Medications: Active Medications Acetaminophen (Tylenol -) 650 mg PO Q6H PRN PRN Reason: FEVER OR PAIN 1-4 Albuterol Sulfate (Ventolin 0.083% Nebulizer Soln -) 1 amp NEB RQID [facility] Last Admin: 08/17/19 08:39 Dose: 1 amp Albuterol Sulfate (Ventolin 0.083% Nebulizer Soln -) 1 amp NEB Q4H PRN PRN Reason: SHORT OF BREATH/WHEEZING Anastrozole (Arimidex -) 1 mg PO DAILY [facility] Last Admin: 08/17/19 10:40 Dose: 1 mg Calcium Carbonate/Cholecalciferol (Os-Ang 500+D -) 1 tab PO BID [facility] Last Admin: 08/17/19 10:40 Dose: 1 tab Ipratropium [place] (Atrovent 0.02% Nebulizer -) 1 amp NEB RQID [facility] Last Admin: 08/17/19 08:38 Dose: 1 amp Methylprednisolone Sodium Succinate (Solu-Medrol -) 40 mg IVPUSH Q6H-IV [facility] Last Admin: 08/17/19 10:40 Dose: 40 mg - Objective Vital Signs: Vital Signs Temperature 98.0 F 08/17/19 10:00 Pulse Rate 120 H 08/17/19 10:00 Respiratory Rate 20 08/17/19 10:00 Blood Pressure 152/80 08/17/19 10:00 O2 Sat by Pulse Oximetry (%) 96 08/16/19 04:22 Constitutional: Yes: No Distress, Calm Eyes: Yes: Conjunctiva Clear HENT: Yes: Atraumatic Cardiovascular: Yes: Regular Rate and Rhythm Respiratory: Yes: Regular, Wheezes Gastrointestinal: Yes: Normal Bowel Sounds, Soft Musculoskeletal: Yes: WNL Extremities: Yes: WNL Edema: No Neurological: Yes: Alert, Oriented Psychiatric: Yes: Alert, Oriented Labs: CBC, BMP 08/17/19 07:15 08/17/19 07:15 INR, PTT INR 1.03 (0.83-1.09) 08/16/19 07:44 Problem List - Problems (1) Acute bronchitis Assessment/Plan: -Pulm consult -Bronchodilators -afebrile -no leukocytosis -previous antibiotics use as outpatient -Chest CT scam shows chronic lung disease with no acute pathology within the chest -IV Medrol -keep SpO2 >90% -O2 via [place] Code(s): J20.9 - ACUTE BRONCHITIS, UNSPECIFIED (2) Breast cancer Assessment/Plan: -Arimidex Code(s): C50.919 - MALIGNANT NEOPLASM OF UNSP SITE OF UNSPECIFIED FEMALE BREAST Assessment/Plan see problem list dvt ppx
--- NOTE | 2019-08-17 15:04 | PN ---
Progress Note (short form) - Note Progress Note: PULMONARY CONSULTATION DICTATED 08/17/19 IMP ACUTE ASTHMATIC BRONCHITIS URI H/O BREAST CA MILD MEDIASTINAL ADENOPATHY ? REACTIVE PLAN ABX SOLUMEDROL INHALED BRONCHODILATORS PFTS OUTPATIENT MONITOR PEAK FLOW F/U CHEST CT OUTPATIENT DR ELIZONDO Problem List - Problems (1) Acute asthmatic bronchitis Code(s): J45.909 - UNSPECIFIED ASTHMA, UNCOMPLICATED (2) Acute bronchitis Code(s): J20.9 - ACUTE BRONCHITIS, UNSPECIFIED (3) Cough Code(s): R05 - COUGH (4) Diffuse wheezing Code(s): R06.2 - WHEEZING
[2019-08-17] MEDS: guaiFENesin/CODEINE 5 ML UNIT-DOSE CUPS PO PRN ×2 (15:26→22:58)
--- NOTE | 2019-08-17 16:57 | CONS ---
DATE OF CONSULTATION: 08/17/2019 PULMONARY CONSULTATION REFERRING PHYSICIAN: Liliya Rosas M.D. HISTORY OF PRESENT ILLNESS: The patient is a 49-year-old female with past medical history of breast CA status post right mastectomy 2003, status post RT and chemotherapy, currently maintained on hormonal therapy, nonsmoker, admitted to [facility] with complaint of 1-week history of increasing shortness of breath and cough. Patient states she was doing well until approximately 1 week ago when she started developing cough. Initially the cough was productive of green sputum. She was started on Z-Jalil. Despite this medication, she had persistent symptoms at which time she went back to her PMD and was changed to Levaquin. Over the weekend she started developing increasing shortness of breath and chest tightness along with fever up to 102. The symptoms worsened, at which time she presented to the emergency room, subsequently admitted. In the ER, she was treated with inhaled bronchodilators without any improvement. She was transferred out to medical floor for further management. Patient states as before is a nonsmoker, she denies any history of occupational exposure to chemicals or fumes. There is no history of secondhand smoke exposure. She denies any history of asthma, although states that whenever she gets a upper respiratory infection, usually on a yearly basis, she develops coughing and wheezing. PAST MEDICAL HISTORY: Include breast CA as well as bronchitis. Right mastectomy. REVIEW OF SYSTEMS: Positive shortness of breath. Positive cough. Positive wheezing. Positive chest tightness. Positive history fever, no hemoptysis, no chest pain, no GI complaints, no nausea, no vomiting, no lower extremity edema. CURRENT MEDICATIONS: Include Solu-Medrol 40 q.6, Tylenol, Arimidex, albuterol, Atrovent, and . PHYSICAL EXAMINATION: General: The patient is a well-developed, well-nourished female, awake, alert, in no acute distress. Vital Signs: She is febrile. Blood pressure 152/80, respiratory rate 20, heart rate 120, O2 saturation is 96% on room air. HEENT: Normocephalic, atraumatic. Neck: Supple. Heart: Tachycardic, S1, S2. Chest: Bilateral wheezes. Abdomen: Soft, bowel sounds positive. Extremities: No cyanosis, edema. LABORATORY: WBC 11.6, hemoglobin 11.2, hematocrit 32.9, with platelet count of 311,000. INR is 1.15, BUN 22, creatinine 1.0. Chest CT: No chronic lung disease and no acute pathology. Mediastinum slightly prominent nodes, mediastinal change. There is some pleural thickening noted, no acute infiltrates. IMPRESSION: 1. Acute asthmatic bronchitis secondary to upper respiratory infection. 2. History of breast carcinoma, status post right mastectomy, status post radiation therapy and chemotherapy, currently on oral therapy. 3. History of bronchitis. 4. Mild mediastinal adenopathy. PLAN: Antibiotics, Solu-Medrol, inhaled bronchodilators, PFTs as outpatient, monitor peak flow. Follow up outpatient CT scan of the chest. Kelli [id number]
[2019-08-18] MEDS ORDERED: POLYETHYLENE GLYCOL 3350 119 GM BTL PO ONE (01:25)
[2019-08-18] MEDS: methylPREDNISolone NA SUCC 40 MG/1 ML VIAL IVPUSH SCH ×2 (02:15→09:22)
[2019-08-18] MEDS: ALBUTEROL SO4 0.083% IH SOL 2.5 MG/3 ML VIAL.NEB. NEB SCH ×2 (08:00→12:00)
[2019-08-18] MEDS: IPRATROPIUM BR 0.02% 0.5 MG/2.5 ML VIAL.NEB. NEB SCH ×2 (08:00→12:00)
[2019-08-18 08:16] LABS: HEMATOCRIT 34.5 % (32.4-45.2); HEMOGLOBIN 11.6 GM/dL (10.7-15.3); MCH 28.3 pg (25.7-33.7); MCHC 33.8 g/dl (32.0-36.0); MEAN PLT VOLUME 7.5 fl (7.5-11.1); PLATELET COUNT 333 K/MM3 (134-434); RBC 4.11 M/mm3 (3.60-5.2); WHITE BLOOD COUNT 13.7 K/mm3 (4.0-10.0)
[2019-08-18 08:54] LABS: ALBUMIN 3.7 g/dl (3.4-5.0); BILIRUBIN,TOTAL 0.2 mg/dL (0.2-1); BLOOD UREA NITROGEN 21.3 mg/dL (7-18); POTASSIUM 4.4 mmol/L (3.5-5.1); TOT PROT 7.2 g/dl (6.4-8.2)
[2019-08-18] MEDS ORDERED: PT OWN MED DRAWER 7, Y5N ONE (09:20)
[2019-08-18] MEDS: CALCIUM 500MG/VIT-D 200 UNITS COMBO TABLET (FP) PO SCH (09:22)
[2019-08-18] MEDS: ANASTROZOLE 1 MG TABLET PO SCH (09:22)
[2019-08-18] MEDS ORDERED: NICOTINE 21 MG/24 HOURS TOPICAL PATCH TD SCH (10:00)
[2019-08-18 10:33] VITALS: BP 145/78; PULSE 122; TEMP 98.2
--- NOTE | 2019-08-18 10:33 | PN ---
Progress Note (short form) - Note Progress Note: PULMONARY States breathing close to baseline. Cough and wheezing less. Has been ambulating. Vital Signs Period Temp Pulse Resp BP Sys/Jones Pulse Ox Last 24 Hr 97.1 F-98.6 F 106-118 20-20 132-144/70-86 Gen: NAD at rest Heart: RRR Lung: scattered rhonchi Abd: soft, nontender Ext: no edema CBC, BMP 08/18/19 07:20 08/18/19 07:20 Active Medications Acetaminophen (Tylenol -) 650 mg PO Q6H PRN PRN Reason: FEVER OR PAIN 1-4 Albuterol Sulfate (Ventolin 0.083% Nebulizer Soln -) 1 amp NEB RQID [facility] Last Admin: 08/18/19 08:00 Dose: 1 amp Albuterol Sulfate (Ventolin 0.083% Nebulizer Soln -) 1 amp NEB Q4H PRN PRN Reason: SHORT OF BREATH/WHEEZING Anastrozole (Arimidex -) 1 mg PO DAILY [facility] Last Admin: 08/18/19 09:22 Dose: 1 mg Calcium Carbonate/Cholecalciferol (Os-Ang 500+D -) 1 tab PO BID [facility] Last Admin: 08/18/19 09:22 Dose: 1 tab Guaifenesin/Codeine Phosphate (Robitussin Ac -) 10 ml PO TID PRN PRN Reason: COUGH Last Admin: 08/17/19 22:58 Dose: 10 ml Ipratropium [place] (Atrovent 0.02% Nebulizer -) 1 amp NEB RQID [facility] Last Admin: 08/18/19 08:00 Dose: 1 amp Methylprednisolone Sodium Succinate (Solu-Medrol -) 40 mg IVPUSH Q6H-IV [facility] Last Admin: 08/18/19 09:22 Dose: 40 mg A/P Acute Asthma Exacerbation Acute Bronchitis h/o Breast Ca Mediastial Lymphadenopathy - can change steroids to PO prednisone 40mg daily and taper as outpt - inhaled bronchodilators - ambulate - can d/c home if ambulating without significant dyspnea - pt requesting home nebulizers - outpt f/u of chest CT when in stable state
--- NOTE | 2019-08-18 11:02 | DS ---
Physical Examination Vital Signs: Vital Signs Temperature 98.2 F 08/18/19 10:00 Pulse Rate 122 H 08/18/19 10:00 Respiratory Rate 20 08/18/19 10:00 Blood Pressure 145/78 08/18/19 10:00 O2 Sat by Pulse Oximetry (%) 96 08/16/19 04:22 Findings/Remarks: Laboratory Results - last 24 hr 08/18/19 08/18/19 07:20 07:20 WBC 13.7 H RBC 4.11 Hgb 11.6 Hct 34.5 MCV 84.0 MCH 28.3 MCHC 33.8 RDW 13.0 Plt Count 333 MPV 7.5 Sodium 141 Potassium 4.4 Chloride 105 Carbon Dioxide 24 Anion Gap 11 BUN 21.3 H Creatinine 1.0 Est GFR (CKD-EPI)AfAm 75.54 Est GFR (CKD-EPI)NonAf 65.18 Random Glucose 119 H Calcium 10.0 Total Bilirubin 0.2 AST 15 ALT 38 Alkaline Phosphatase 101 Total Protein 7.2 Albumin 3.7 Active Medications Generic Name Dose Route Start Last Admin Trade Name Freq PRN Reason Stop Dose Admin Acetaminophen 650 mg 08/15/19 21:28 Tylenol - PO Q6H PRN FEVER OR PAIN 1-4 Albuterol Sulfate 1 amp 08/16/19 08:00 08/18/19 08:00 Ventolin 0.083% Nebulizer Soln - NEB 1 amp RQID [facility] Administration Albuterol Sulfate 1 amp 08/15/19 22:37 Ventolin 0.083% Nebulizer Soln - NEB Q4H PRN SHORT OF BREATH/WHEEZING Anastrozole 1 mg 08/16/19 10:00 08/18/19 09:22 Arimidex - PO 1 mg DAILY [facility] Administration Calcium Carbonate/Cholecalciferol 1 tab 08/15/19 22:00 08/18/19 09:22 Os-Ang 500+D - PO 1 tab BID [facility] Administration Guaifenesin/Codeine Phosphate 10 ml 08/17/19 15:13 08/17/19 22:58 Robitussin Ac - PO 10 ml TID PRN Administration COUGH Ipratropium [place] 1 amp 08/16/19 08:00 08/18/19 08:00 Atrovent 0.02% Nebulizer - NEB 1 amp RQID [facility] Administration Methylprednisolone Sodium Succinate 40 mg 08/16/19 03:00 08/18/19 09:22 Solu-Medrol - IVPUSH 40 mg Q6H-IV [facility] Administration Constitutional: Yes: No Distress, Calm Eyes: Yes: Conjunctiva Clear HENT: Yes: Atraumatic Cardiovascular: Yes: Regular Rate and Rhythm Respiratory: Yes: Regular, Wheezes Gastrointestinal: Yes: Normal Bowel Sounds, Soft Musculoskeletal: Yes: WNL Extremities: Yes: WNL Edema: No Neurological: Yes: Alert, Oriented Psychiatric: Yes: Alert, Oriented Labs: CBC, BMP 08/18/19 07:20 08/18/19 07:20 Discharge Summary Problems reviewed: Yes Reason For Visit: DIFFUSE WHEEZING Current Active Problems Acute asthmatic bronchitis (Acute) Acute bronchitis (Acute) Breast cancer (Acute) Cough (Acute) Diffuse wheezing (Acute) URI (upper respiratory infection) (Acute) Hospital Course: This is a 49yF with PMH breast cancer 2003 who presented to the ED with cough/ SOB x 6 days. Pt reports fever 102 a few days ago but has been afebrile x 2 days. She was prescribed zpak initially by her PCP and took it for 3 days without improvement. Her antibiotic was then changed to levaquin and she had a total of 3 days of levaquin. Her symptoms did not improve and she presented to the ED for further management. Patient was evaluated by pulmonary and started on Medrol IV. She states her breathing is better, and denies SOB with exertion. Condition: Stable - Instructions Diet, Activity, Other Instructions: Follow up with PMD in 1 week of discharge Follow up wt Pulm next week as scheduled return to ER if develop severe pain, respiratory distress, chest pain PREDNISONE TAPER: TAKE 40MG TABLET DAILY X 3 DAYS, TAKE 30MG TABLET DAILY X 3 DAYS, THEN TAKE 20MG TABLET DAILY X 3 DAYS continue with medication regimen as prescribed Referrals: Indra Kasper MD [Primary Care Provider] - Disposition: HOME - Home Medications Comprehensive Discharge Medication List: Ambulatory Orders RX: Anastrozole [Arimidex -] 1 mg PO DAILY 03/14/18 RX: Calcium Carbonate/Vitamin D3 [Calcium 500 + Vit D Caplet] 1 each PO BID RX: Acetaminophen [Tylenol .Regular Strength -] 650 mg PO Q6H PRN tablet RX: Albuterol 0.083% Nebulizer Audra [Ventolin 0.083% Nebulizer Soln -] 1 amp NEB RQID #30 amp 08/18/19 RX: Guaifenesin AC [Robitussin AC -] 10 ml PO TID PRN #1 bottle MDD 3 08/18/19 RX: Nebulizer [Truneb Nebulizer] 1 each MC PRN #1 each 08/18/19 RX: Prednisone [Deltasone] 20 mg PO DAILY #14 tablet 08/18/19
== END 2019-08-18 14:41 | disposition home or self-care (01) | DRG 144 ==
LOC: JER 15:40 → JERFT 15:40 → JERBED 20:42 → J6S 08-16 03:54
PROVIDERS: ADMIT Internal Medicine; ATTEND Family Medicine
DX: J20.9 Acute bronchitis, unspecified (principal); R59.1 Generalized enlarged lymph nodes; J45.901 Unspecified asthma with (acute) exacerbation; C50.919 Malignant neoplasm of unspecified site of unspecified female breast; J06.9 Acute upper respiratory infection, unspecified
CPT/HCPCS: 36415; 71046-TC-FY; 71250-TC; 80048; 80053; 82550; 83735; 84100; 84484; 85025; 85027; 85610; 87804; 93005; 93010; 94640; 99285-25; J1100; J7030

== ENCOUNTER 2020-08-29 16:18 | Emergency (ER) | payer OTHER ==
[2020-08-29 16:39] VITALS: BP 136/64; PULSE 101; TEMP 98.4; BMI 26.0
--- NOTE | 2020-08-29 16:40 | PDOC ---
Rapid Medical Evaluation Chief Complaint: Injury Time Seen by Provider: 08/29/20 16:34 Medical Evaluation: Allergies Allergy/AdvReac Type Severity Reaction Status Date / Time No Known Allergies Allergy Verified 03/18/18 16:12 Vital Signs Temp Pulse Resp BP Pulse Ox 98.4 F 101 H 17 136/64 100 08/29/20 16:36 08/29/20 16:36 08/29/20 16:36 08/29/20 16:36 08/29/20 16:36 08/29/20 16:39 CC: Pt slammed left 5th digit in door, still with pain Exam: noted edema to area Plan: xray Discharge Disposition - Diagnosis Finger injury - Referrals - Patient Instructions - Post Discharge Activity
--- OUTSIDE RECORDS SUMMARY | 2020-08-29 16:47 | XMS ---
:1970 Author Organization [facility] Support Name Relationship Address Phone YPS Unavailable [address] [place] [address] UE Unavailable Unavailable Unavailable ELVIRA SHARP [address] [place] [address] Re-disclosure Warning The records that you are about to access may contain information from federally- assisted alcohol or drug abuse programs. If such information is present, then the following federally mandated warning applies: This information has been disclosed to you from records protected by federal confidentiality rules (42 CFR part 2). The federal rules prohibit you from making any further disclosure of this information unless further disclosure is expressly permitted by the written consent of the person to whom it pertains or as otherwise permitted by 42 CFR part 2. A general authorization for the release of medical or other information is NOT sufficient for this purpose. The Federal rules restrict any use of the information to criminally investigate or prosecute any alcohol or drug abuse patient.The records that you are about to access may contain highly sensitive health information, the redisclosure of which is protected by Article 27-F of the [facility] Public Health law. If you continue you may haveaccess to information: Regarding HIV / AIDS; Provided by facilities licensed or operated by the [facility] Office of Mental Health; or Provided by the [facility] Office for People With Developmental Disabilities. If such information is present, then the following [facility] mandated warning applies: This information has been disclosed to you from confidential records which are protected by state law. State law prohibits you from making any further disclosure of this information without the specific written consent of the person to whom it pertains, or as otherwise permitted by law. Any unauthorized further disclosure in violation of state law may result in a fine or mcfp sentence or both. A general authorization for the release of medical or other information is NOT sufficient authorization for further disclosure. Insurance Providers Payer name Policy type Policy ID Covered Covered libertarian's Policy P juvenal / Coverage libertarian ID relationship to [place] [employer] ormation type connor HIP MEDICAID [id number] SP [id number] MEDICAID [id number] SP [id number] [facility] [id number] HEALTH HIP 1 MEDICAID [id number]
--- NOTE | 2020-08-29 17:19 | PDOC ---
History of Present Illness - General Chief Complaint: Injury Stated Complaint: L RING FINGER PAIN Time Seen by Provider: 08/29/20 16:34 - History of Present Illness Initial Comments: 08/29/20 17:16 50-year-old female presents for evaluation of left fourth finger pain. Patient was cleaning around the house and after her cleaning session she noticed some pain at the left fourth finger she points to the dorsum of the DIPJ as the area of her discomfort. Past medical history of breast cancer 15 years ago. Past History - Medical History Allergies/Adverse Reactions: Allergies Allergy/AdvReac Type Severity Reaction Status Date / Time No Known Allergies Allergy Verified 03/18/18 16:12 Home Medications: Ambulatory Orders Anastrozole [Arimidex -] 1 mg PO DAILY 03/14/18 Calcium Carbonate/Vitamin D3 [Calcium 500-Vit D3 125 Caplet] 1 each PO BID 08/15/19 Acetaminophen [Tylenol .Regular Strength -] 650 mg PO Q6H PRN tablet 08/18/19 Albuterol 0.083% Nebulizer Audra [Ventolin 0.083% Nebulizer Soln -] 1 amp NEB RQID #30 amp 08/18/19 Guaifenesin AC [Robitussin AC -] 10 ml PO TID PRN #1 bottle MDD 3 08/18/19 Nebulizer [Truneb Nebulizer] 1 each MC PRN #1 each 08/18/19 predniSONE [Deltasone] 20 mg PO DAILY #14 tablet 08/18/19 Cancer: Yes (breast) COPD: No - Reproductive History Is Patient Now?: No - Immunization History Immunization Up to Date: Yes - Psycho-Social/Smoking History Smoking Status: No Smoking History: Never smoked Have you smoked in the past 12 months: No Number of Cigarettes Smoked Daily: 0 Information on smoking cessation initiated: No - Substance Abuse Hx (Audit-C & DAST Scrn) How often the patient has a drink containing alcohol: Never Score: In Men: 4 or > Positive; In Women: 3 or > Positive: 0 Screen Result (Pos requires Nsg. Audit-10AR): Negative In the last yr the pt used illegal drug/Rx for NonMed reason: No Score: Yes response is considered Positive: 0 Screen Result (Positive result requires Nsg. DAST-10): Negative Review of Systems - Review of Systems Musculoskeletal: Yes: Joint Pain *Physical Exam - Vital Signs Last Vital Signs Temp Pulse Resp BP Pulse Ox 98.4 F 101 H 17 136/64 100 08/29/20 16:36 08/29/20 16:36 08/29/20 16:36 08/29/20 16:36 08/29/20 16:36 - Physical Exam 08/29/20 17:17 There is mild erythema at the dorsum of the left fourth finger on the skin overlying the DIPJ. There is weak extension at the DIPJ however no mallet deformity FDS and FDP work independently no gross sensorimotor deficits neurovascular intact the remainder of the hand is normal. Medical Decision Making - Medical Decision Making 08/29/20 17:17 X-rays of the left hand and fourth finger show no fracture trauma or destructive process. This is most likely an early mallet finger. Or partial tear of the extensor tendon at the DIPJ. Extension splint applied follow-up with Ortho hand Discussed use of leaving the splint on 18/05 even when coming out for hygiene she must keep her finger extended at the DIPJ. Tylenol for pain I have reviewed the pathophysiology with the patient. They are in agreement w ith the treatment plan all questions were answered to their satisfaction. Understanding for follow-up without fail was also conveyed to the patient. Again they are in agreement. Discharge - Discharge Information Problems reviewed: Yes Clinical Impression/Diagnosis: Finger injury Condition: Stable Disposition: HOME - Admission No - Follow up/Referral Referrals: Indra Kasper MD [Primary Care Provider] - Kash Zuñiga MD [Staff Physician] - - Patient Discharge Instructions Additional Instructions: Tylenol as directed for pain. Avoid anti-inflammatories such as Advil Motrin Aleve and ibuprofen. Return to the emergency room for worsening symptoms and without fail follow-up with orthopedic hand surgery in 1 to 2 days for further evaluation and treatment options. Please leave the splint on 24 hours a day 7 days a week as we discussed if you come out of it for hygiene which you should do 1-2 times a day you must leave the finger extended as I have shown you in the emergency room. - Post Discharge Activity
== END 2020-08-29 17:20 | disposition home or self-care (01) ==
LOC: JERFT 16:18
DX: S69.92XA Unspecified injury of left wrist, hand and finger(s), initial encounter (principal)
CPT/HCPCS: 73140-TC-LT-FY; 99284-25

== ENCOUNTER 2022-07-30 05:49 | Emergency (ER) | payer OTHER ==
[2022-07-30 06:00] VITALS: RESP 18; TEMP 98.9; BMI 25.4
[2022-07-30] MEDS ORDERED: guaiFENesin 600 MG TABLET.ER (FP) PO ONE (07:19)
[2022-07-30] MEDS ORDERED: ALBUTEROL SO4 2.5/IPRATROPIUM 0.5 INH SOL 3 ML VIAL.NEB. NEB ONE ×2 (07:29→07:30)
[2022-07-30 08:34] VITALS: BP 138/80; PULSE 116
== END 2022-07-30 09:11 | disposition home or self-care (01) ==
LOC: JER 05:49
PROC: 3E0F7GC Introduction of Other Therapeutic Substance into Respiratory Tract, Via Natural or Artificial Opening (ICD-10-PCS; principal; 2022-07-30)
DX: R05.1 Acute cough (principal); R09.81 Nasal congestion
CPT/HCPCS: 0241U-QW; 71046-TC-FY; 93005; 93010; 99284-25

== ENCOUNTER 2023-08-17 08:42 | Emergency (ER) | payer OTHER ==
[2023-08-17 08:55] VITALS: BMI 19.5
[2023-08-17] MEDS ORDERED: PSEUDOEPHEDRINE HCL 30 MG TABLET PO ONE (09:51)
[2023-08-17 10:10] VITALS: BP 152/89; PULSE 108; RESP 18; TEMP 98.4
== END 2023-08-17 10:23 | disposition home or self-care (01) ==
LOC: JERFT 08:42 → JER 08:42 → JERFT 10:23
DX: R68.83 Chills (without fever) (principal); M79.10 Myalgia, unspecified site; R53.83 Other fatigue; R05.9 Cough, unspecified; J06.9 Acute upper respiratory infection, unspecified; Z20.822 Contact with and (suspected) exposure to COVID-19
CPT/HCPCS: 0241U-QW; 71046-TC-FY; 99284-25

== ENCOUNTER 2023-10-24 15:33 | Emergency (ER) | payer OTHER ==
[2023-10-24 15:36] VITALS: BP 147/75; PULSE 116; RESP 18; TEMP 99.6; BMI 26.0
== END 2023-10-24 17:50 | disposition home or self-care (01) ==
LOC: JERFT 15:33
DX: R05.9 Cough, unspecified (principal); R09.81 Nasal congestion; R53.83 Other fatigue; U07.1 COVID-19
CPT/HCPCS: 0241U-QW; 71046-TC-FY; 99284-25

== ENCOUNTER 2023-12-11 09:01 | Inpatient (IN) | payer OTHER ==
[2023-12-11] MEDS: ALBUTEROL SO4 2.5/IPRATROPIUM 0.5 INH SOL 3 ML VIAL.NEB. NEB SCH (10:10)
[2023-12-11 10:25] LABS: BASO % 0.7 % (0-2.0); EOS % 1.5 % (0-4.5); HEMATOCRIT 36.9 % (32.4-45.2); HEMOGLOBIN 12.7 GM/dL (10.7-15.3); LYMPH % 11.6 % (8-40); MCH 27.8 pg (25.7-33.7); MCHC 34.4 g/dl (32.0-36.0); MEAN CELL VOLUME 80.8 fl (80-96); MONO % 7.9 % (3.8-10.2); NEUT % 78.3 % (42.8-82.8); PLATELET COUNT 232 10^3/uL (134-434); RBC 4.56 M/mm3 (3.60-5.2); RDW 13.8 % (11.6-15.6); WHITE BLOOD COUNT 8.8 K/mm3 (4.0-10.0)
[2023-12-11 10:32] LABS: INR 1.13 (0.83-1.09); PROTHROMBIN TIME (PATIENT) 13.1 SEC (9.7-13.0)
[2023-12-11 10:34] LABS: ACTIVATED PTT 31.4 SECONDS (25.2-36.5)
[2023-12-11 10:42] LABS: POTASSIUM 3.7 mmol/L (3.5-5.1)
[2023-12-11 10:44] LABS: CALCIUM 9.5 mg/dL (8.5-10.1)
[2023-12-11 10:45] LABS: ALBUMIN 3.4 g/dl (3.4-5.0); BLOOD UREA NITROGEN 15.2 mg/dL (7-18); MAGNESIUM 2.2 mg/dL (1.8-2.4)
[2023-12-11 10:48] LABS: CREATININE 0.9 mg/dL (0.55-1.3)
[2023-12-11 10:49] LABS: BILIRUBIN,TOTAL 0.8 mg/dL (0.2-1); TOT PROT 7.1 g/dl (6.4-8.2)
[2023-12-11] MEDS ORDERED: ACETAMINOPHEN INJECTION 100 ML IVPB ONE (11:34)
[2023-12-11] MEDS ORDERED: methylPREDNISolone NA SUCC 125 MG/2 ML VIAL ONE (11:34)
[2023-12-11] MEDS: ACETAMINOPHEN 1000 MG/100 ML BAG IVPB ONE (11:51)
[2023-12-11] MEDS: methylPREDNISolone NA SUCC 125 MG/2 ML VIAL IVPUSH ONE (11:52)
[2023-12-11] MEDS: LACTATED RINGERS SOLUTION 1000 ML INFUS.BAG IV ONE (12:20)
[2023-12-11] MEDS ORDERED: AZITHROMYCIN IVPB 500 MG/250 ML BAG IVPB ONE (17:56)
[2023-12-11] MEDS ORDERED: CEFTRIAXONE 1 GM/50 ML BAG ONE (17:56)
[2023-12-11] MEDS: CEFTRIAXONE 1,000 MG in DEXTROSE 5%-WATER - 50 ML IVPB ONE (18:14)
[2023-12-11] MEDS: AZITHROMYCIN IVPB 500 MG in DEXTROSE 5%-WATER - 250 ML IVPB ONE (18:36)
[2023-12-11] MEDS ORDERED: guaiFENesin/CODEINE 10 ML UNIT-DOSE CUPS ONE (20:25)
[2023-12-11] MEDS ORDERED: methylPREDNISolone NA SUCC 40 MG/1 ML VIAL ONE (20:26)
[2023-12-11] MEDS: methylPREDNISolone NA SUCC 40 MG/1 ML VIAL IVPUSH SCH (20:30)
[2023-12-11] MEDS: guaiFENesin 200 MG/10 ML 10 ML UNIT-DOSE CUPS PO ONE (20:30)
[2023-12-11] MEDS ORDERED: DOCUSATE SODIUM 100 MG CAPSULE (FP) PO PRN (23:41)
[2023-12-12] MEDS: guaiFENesin 600 MG TABLET.ER (FP) PO SCH (00:49)
[2023-12-12] MEDS: MONTELUKAST NA 5 MG TAB.CHEW PO SCH (01:31)
[2023-12-12] MEDS: ALBUTEROL SO4 2.5/IPRATROPIUM 0.5 INH SOL 3 ML VIAL.NEB. NEB PRN (05:35)
[2023-12-12] MEDS: PANTOPRAZOLE 40 MG TABLET PO SCH (06:13)
[2023-12-12 09:36] LABS: HEMATOCRIT 36.3 % (32.4-45.2); HEMOGLOBIN 12.2 GM/dL (10.7-15.3); MCH 27.5 pg (25.7-33.7); MCHC 33.6 g/dl (32.0-36.0); MEAN CELL VOLUME 81.8 fl (80-96); MEAN PLT VOLUME 7.8 fl (7.5-11.1); PLATELET COUNT 281 10^3/uL (134-434); RBC 4.43 M/mm3 (3.60-5.2); WHITE BLOOD COUNT 16.7 K/mm3 (4.0-10.0)
[2023-12-12 10:01] LABS: POTASSIUM 4.2 mmol/L (3.5-5.1)
[2023-12-12 10:03] LABS: CALCIUM 9.6 mg/dL (8.5-10.1)
[2023-12-12 10:04] LABS: BLOOD UREA NITROGEN 17.1 mg/dL (7-18); MAGNESIUM 2.5 mg/dL (1.8-2.4)
[2023-12-12 10:07] LABS: CREATININE 0.8 mg/dL (0.55-1.3)
[2023-12-12] MEDS: CEFTRIAXONE 1 GM in DEXTROSE 5%-WATER - 50 ML IVPB SCH (10:56)
[2023-12-12] MEDS: ENOXAPARIN NA (PORCINE) 40 MG/0.4 ML DISP.SYRIN SQ SCH (10:56)
[2023-12-12] MEDS: ANASTROZOLE 1 MG TABLET PO SCH (10:59)
[2023-12-12] MEDS: AZITHROMYCIN IVPB 500 MG/250 ML BAG IVPB SCH (10:59)
[2023-12-12 12:25] LABS: ANISOCYTOSIS 0; HELMET CELLS 0; HOWELL-JOLLY BODIES 0; MACROCYTOSIS 0; OVALOCYTE 0; ROULEAU 0; SICKELED CELLS 0; TARGET CELLS 0; TEAR DROP CELLS 0; TOXIC GRANULATION 0
[2023-12-12 19:51] VITALS: BMI 26.2
[2023-12-12] MEDS: FAMOTIDINE 20 MG TABLET PO SCH (21:07)
[2023-12-12] MEDS: MONTELUKAST NA 10 MG TABLET PO SCH (21:08)
[2023-12-13 10:16] LABS: HEMATOCRIT 36.2 % (32.4-45.2); MCH 27.2 pg (25.7-33.7); MCHC 33.2 g/dl (32.0-36.0); MEAN PLT VOLUME 7.6 fl (7.5-11.1); PLATELET COUNT 328 10^3/uL (134-434); RBC 4.41 M/mm3 (3.60-5.2); RDW 13.9 % (11.6-15.6); WHITE BLOOD COUNT 15.5 K/mm3 (4.0-10.0)
[2023-12-13 10:47] LABS: POTASSIUM 3.8 mmol/L (3.5-5.1)
[2023-12-13 10:50] LABS: ALBUMIN 3.6 g/dl (3.4-5.0); CALCIUM 9.3 mg/dL (8.5-10.1)
[2023-12-13 10:51] LABS: BLOOD UREA NITROGEN 24.2 mg/dL (7-18)
[2023-12-13 10:54] LABS: CREATININE 0.9 mg/dL (0.55-1.3)
[2023-12-13 10:55] LABS: BILIRUBIN,TOTAL 0.3 mg/dL (0.2-1); TOT PROT 7.2 g/dl (6.4-8.2)
[2023-12-13] MEDS: BUDESONIDE/FORMETEROL FUMARATE 160/4.5 mcg INHALER IH SCH (11:00)
[2023-12-13 12:36] LABS: ANISOCYTOSIS 0; HELMET CELLS 0; HOWELL-JOLLY BODIES 0; MACROCYTOSIS 0; OVALOCYTE 0; ROULEAU 0; SICKELED CELLS 0; TARGET CELLS 0; TEAR DROP CELLS 0; TOXIC GRANULATION 0
[2023-12-14] MEDS: ACETAMINOPHEN 325 MG TABLET (FP) PO PRN (01:40)
[2023-12-14] MEDS: metoPROLOL SUCCINATE 25 MG TAB.SR.24H (FP) PO SCH (15:04)
[2023-12-15 08:51] LABS: HEMATOCRIT 37.9 % (32.4-45.2); MCH 27.8 pg (25.7-33.7); MCHC 34.2 g/dl (32.0-36.0); MEAN CELL VOLUME 81.4 fl (80-96); MEAN PLT VOLUME 7.2 fl (7.5-11.1); PLATELET COUNT 363 10^3/uL (134-434); RBC 4.66 M/mm3 (3.60-5.2); RDW 13.5 % (11.6-15.6); WHITE BLOOD COUNT 11.9 K/mm3 (4.0-10.0)
[2023-12-15 09:07] LABS: POTASSIUM 4.3 mmol/L (3.5-5.1)
[2023-12-15] MEDS: LISINOPRIL 5 MG TABLET PO SCH (09:09)
[2023-12-15 09:10] LABS: CALCIUM 9.1 mg/dL (8.5-10.1)
[2023-12-15 09:11] LABS: ALBUMIN 3.5 g/dl (3.4-5.0)
[2023-12-15 09:14] LABS: CREATININE 0.8 mg/dL (0.55-1.3)
[2023-12-15 09:16] LABS: BILIRUBIN,TOTAL 0.3 mg/dL (0.2-1); TOT PROT 7.1 g/dl (6.4-8.2)
[2023-12-15] MEDS ORDERED: ALBUTEROL SO4 0.083% IH SOL 2.5 MG/3 ML VIAL.NEB. NEB PRN (11:13)
[2023-12-15] MEDS ORDERED: ALBUTEROL SO4 2.5/IPRATROPIUM 0.5 INH SOL 3 ML VIAL.NEB. NEB ONE (11:25)
[2023-12-15] MEDS: ALBUTEROL SO4 2.5/IPRATROPIUM 0.5 INH SOL 3 ML VIAL.NEB. NEB SCH (11:55)
[2023-12-15 12:53] LABS: ANISOCYTOSIS 0; HELMET CELLS 0; HOWELL-JOLLY BODIES 0; MACROCYTOSIS 0; OVALOCYTE 0; ROULEAU 0; SICKELED CELLS 0; TARGET CELLS 0; TEAR DROP CELLS 0; TOXIC GRANULATION 0
[2023-12-15 13:24] VITALS: BP 153/96; PULSE 105; RESP 20; TEMP 98.2
== END 2023-12-15 14:56 | disposition home or self-care (01) | DRG 139 ==
LOC: JER 09:01 → JERBED 17:42 → J7W 12-12 00:08
PROVIDERS: ADMIT Internal Medicine; ATTEND Family Medicine
DX: J18.9 Pneumonia, unspecified organism (principal); J45.901 Unspecified asthma with (acute) exacerbation; K21.9 Gastro-esophageal reflux disease without esophagitis; R91.8 Other nonspecific abnormal finding of lung field; Z85.3 Personal history of malignant neoplasm of breast
CPT/HCPCS: 0241U-QW; 36415; 71045-TC-FY; 71275-TC; 80048; 80053; 83735; 84100; 84484; 85025; 85610; 85730; 93005; 93010; 94640; 99285-25; J0131; Q9967

== ENCOUNTER 2024-01-15 08:51 | Emergency (ER) | payer OTHER ==
[2024-01-15 08:58] VITALS: RESP 20; BMI 26.0
[2024-01-15 10:28] LABS: BASO % 1.2 % (0-2.0); EOS % 1.3 % (0-4.5); HEMATOCRIT 36.3 % (32.4-45.2); HEMOGLOBIN 12.5 GM/dL (10.7-15.3); LYMPH % 26.7 % (8-40); MCH 28.3 pg (25.7-33.7); MCHC 34.5 g/dl (32.0-36.0); MEAN CELL VOLUME 81.9 fl (80-96); MEAN PLT VOLUME 6.5 fl (7.5-11.1); MONO % 8.7 % (3.8-10.2); NEUT % 62.1 % (42.8-82.8); PLATELET COUNT 314 10^3/uL (134-434); RBC 4.43 M/mm3 (3.60-5.2); RDW 14.2 % (11.6-15.6); WHITE BLOOD COUNT 5.2 K/mm3 (4.0-10.0)
[2024-01-15 10:41] LABS: ACTIVATED PTT 31.5 SECONDS (25.2-36.5); INR 0.95 (0.83-1.09)
[2024-01-15 10:48] LABS: ALBUMIN 3.4 g/dl (3.4-5.0); BLOOD UREA NITROGEN 18.2 mg/dL (7-18); CALCIUM 9.3 mg/dL (8.5-10.1)
[2024-01-15 10:52] LABS: CREATININE 0.8 mg/dL (0.55-1.3)
[2024-01-15 10:53] LABS: BILIRUBIN,TOTAL 0.3 mg/dL (0.2-1); TOT PROT 6.7 g/dl (6.4-8.2)
[2024-01-15 11:39] LABS: N-TERMINAL BNP 15.7 pg/ml (5-125)
[2024-01-15] MEDS ORDERED: guaiFENesin/D-METHORPHAN HB 10 ML UNIT-DOSE CUPS ONE (13:16)
[2024-01-15] MEDS: guaiFENesin/D-METHORPHAN HB 10 ML UNIT-DOSE CUPS PO ONE (13:18)
[2024-01-15] MEDS: LACTATED RINGERS SOLUTION 1000 ML INFUS.BAG IV ONE (13:25)
[2024-01-15 17:27] VITALS: BP 121/74; PULSE 107; TEMP 98.4
== END 2024-01-15 17:52 | disposition home or self-care (01) ==
LOC: JER 08:51
DX: R05.9 Cough, unspecified (principal); R06.02 Shortness of breath; R06.2 Wheezing; Z20.822 Contact with and (suspected) exposure to COVID-19
CPT/HCPCS: 0241U-QW; 36415; 71046-TC-FY; 71275-TC; 80053; 83880; 84484; 85025; 85610; 85730; 93005; 93010; 99285-25; Q9967

== ENCOUNTER 2024-03-28 14:12 | Emergency (ER) | payer OTHER ==
[2024-03-28 14:22] VITALS: BP 156/90; RESP 18; TEMP 98.7; BMI 25.7
[2024-03-28] MEDS: DEXAMETHASONE SOD PHOSPHATE 10 MG/1 ML VIAL IVPUSH ONE ×2 (15:29→16:08)
[2024-03-28] MEDS ORDERED: DEXAMETHASONE SOD PHOSPHATE 10 MG/1 ML VIAL ONE (15:31)
[2024-03-28] MEDS ORDERED: ACETAMINOPHEN 325 MG TABLET (FP) ONE (15:31)
[2024-03-28] MEDS ORDERED: ALBUTEROL SO4 2.5/IPRATROPIUM 0.5 INH SOL 3 ML VIAL.NEB. NEB ONE (15:31)
[2024-03-28] MEDS: ACETAMINOPHEN 500 MG TABLET (FP) PO ONE (15:43)
[2024-03-28] MEDS: ALBUTEROL SO4 2.5/IPRATROPIUM 0.5 INH SOL 3 ML VIAL.NEB. NEB SCH (15:44)
[2024-03-28 15:45] VITALS: PULSE 109
[2024-03-28 16:29] LABS: BASO % 0.7 % (0-2.0); EOS % 2.8 % (0-4.5); HEMATOCRIT 40.4 % (32.4-45.2); HEMOGLOBIN 13.7 GM/dL (10.7-15.3); LYMPH % 24.1 % (8-40); MCH 27.7 pg (25.7-33.7); MCHC 33.8 g/dl (32.0-36.0); MEAN CELL VOLUME 81.9 fl (80-96); MEAN PLT VOLUME 7.3 fl (7.5-11.1); MONO % 6.1 % (3.8-10.2); NEUT % 66.3 % (42.8-82.8); PLATELET COUNT 287 10^3/uL (134-434); RBC 4.93 M/mm3 (3.60-5.2); RDW 13.9 % (11.6-15.6); WHITE BLOOD COUNT 8.7 K/mm3 (4.0-10.0)
[2024-03-28 16:35] LABS: INR 0.99 (0.83-1.09); PROTHROMBIN TIME (PATIENT) 11.2 SEC (9.7-13.0)
[2024-03-28 16:37] LABS: ACTIVATED PTT 32.4 SECONDS (25.2-36.5)
[2024-03-28 17:54] LABS: POTASSIUM 3.6 mmol/L (3.5-5.1)
[2024-03-28 17:55] LABS: CALCIUM 9.5 mg/dL (8.5-10.1)
[2024-03-28 17:56] LABS: BLOOD UREA NITROGEN 15.4 mg/dL (7-18)
[2024-03-28 17:59] LABS: CREATININE 0.7 mg/dL (0.55-1.3)
== END 2024-03-28 18:39 | disposition home or self-care (01) ==
LOC: JERFT 14:12
PROC: 3E033GC Introduction of Other Therapeutic Substance into Peripheral Vein, Percutaneous Approach (ICD-10-PCS; principal; 2024-03-28)
PROC: 3E0F7GC Introduction of Other Therapeutic Substance into Respiratory Tract, Via Natural or Artificial Opening (ICD-10-PCS; 2024-03-28)
DX: J45.901 Unspecified asthma with (acute) exacerbation (principal); R05.9 Cough, unspecified; J06.9 Acute upper respiratory infection, unspecified; B97.89 Other viral agents as the cause of diseases classified elsewhere; R06.02 Shortness of breath; M54.2 Cervicalgia; J02.9 Acute pharyngitis, unspecified; Z20.822 Contact with and (suspected) exposure to COVID-19
CPT/HCPCS: 0241U-QW; 36415; 71046-TC-FY; 80048; 84484; 85025; 85379; 85610; 85730; 87651; 93005; 93010; 99285-25; J1100